=== PATIENT | female | born 1965 | race Caucasian/White ===

== ENCOUNTER → 2017-02-04 | Outpatient (CLI) | payer BC ==
[2017-02-04 10:27] LABS: CHLORIDE,CL 109 mmol/L (98-110); SODIUM,NA 142 mmol/L (136-146)
== END | disposition home or self-care (01) ==
LOC: MW.LAB 09:31
PROVIDERS: ATTEND Nurse Practitioner Family
DX: R21 Rash and other nonspecific skin eruption (principal)
CPT/HCPCS: 36415; 80053; 84439; 84443; 85025; 86140

== ENCOUNTER → 2017-02-07 | Outpatient (CLI) | payer BC ==
--- NOTE | 2017-02-08 10:17 | MY ---
EXAMINATION: Right digital diagnostic mammogram and targeted ultrasound. HISTORY: Pain, comparison dated 11/22/2016, 11/20/2016, 02/28/2015. FINDINGS: A right CC, MLO, and ML view obtained. No abnormal masses or calcifications noted within the region of concern. No skin thickening. No nipp le inversion. Targeted grayscale images obtained in the region of concern demonstrates no abnormal mass or fluid collection. No skin thickening. IMPRESSION: BI-RADS category I - negative mammogram. Continued screening according to ACR-ACS guidelines walter trimble. THE FALSE-NEGATIVE RATE OF MAMMOGRAM IS APPROXIMATELY 10%. MANAGEMENT OF A PALPABLE ABNORMALITY MUST BE BASED UPON CLINICAL GROUNDS. SENSITIVITY FOR DETECTION OF ABNORMALITIES IN DENSE BREASTS IS LOW. NOTE: A letter will be sent to the patient regarding findings.
== END | disposition home or self-care (01) ==
LOC: MW.MAM 10:39
PROVIDERS: ATTEND Nurse Practitioner Women's Health
DX: N64.9 Disorder of breast, unspecified (principal); N64.59 Other signs and symptoms in breast; N64.4 Mastodynia
CPT/HCPCS: 76642; G0206

== ENCOUNTER 2017-09-30 08:50 | Emergency (ER) | payer OTHER ==
[2017-09-30] MEDS ORDERED: Bupivacaine 0.5% 10 ML SDV INJECT ONE (09:11)
[2017-09-30 09:15] VITALS: BP 122/81
--- NOTE | 2017-09-30 10:24 | CR ---
EXAMINATION: Left hand, fourth digit HISTORY: Laceration COMPARISON: None TECHNIQUE: 3 views FINDINGS/IMPRESSION: There is no acute osseous abnormality, dislocation, or fracture. Mild soft tissu e swelling is noted overlying the distal aspect of the fourth digit. Remaining osseous structures and joint spaces appear intact.
[2017-09-30] MEDS ORDERED: Diphtheria,Pertussis(Acell),Tetanus Vaccine 0.5 ML Syringe IM ONE (10:37)
--- NOTE | 2017-09-30 10:39 | EDM.PDOC ---
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 Review of systems: As per history of present illness and below otherwise all systems reviewed and negative. Past medical history: As per history of present illness and as reviewed below otherwise noncontributory. Surgical history: As per history of present illness and as reviewed below otherwise noncontributory. Social history: No reported history of drug or alcohol abuse. Family history: As per history of present illness and as reviewed below otherwise noncontributory. Physical exam: General: Well developed, well nourished in NAD HEENT: Atraumatic, normocephalic, pupils reactive, negative for conjunctival pallor or scleral icterus, mucous membranes moist, throat clear, neck supple, nontender, trachea midline. Lungs: Clear to auscultation, breath sounds equal bilaterally, chest nontender. Heart: S1S2, regular, negative for clicks, rubs, or JVD. Abdomen: Soft, nondistended, nontender. Negative for masses or hepatosplenomegaly. Negative for costovertebral tenderness. Pelvis: Stable nontender. Genitourinary: Deferred. Rectal: Deferred. Extremities: Left ring finger with laceration through the distal corner lateral tip of the nail plate to the pad of the finger., negative for cords or calf pain. Neurovascular unremarkable. Neuro: Awake, alert, oriented. Cranial nerves II through XII unremarkable. Cerebellum unremarkable. Motor and sensory unremarkable throughout. Exam nonfocal. Diagnostics: []X-ray negative for fracture Therapeutics: []Wound Sutured and cleaned tetanus updated Impression: []Laceration left ring finger Plan: []Sutures out 7-10 days, ice, elevate, Motrin and tramadol for pain follow-up with Dr. Jordan Definitive disposition and diagnosis as appropriate pending reevaluation and review of above. Left Hand Pain Score (Numeric/FACES): 6 - Related Data Allergies Allergy/AdvReac Type Severity Reaction Status Date / Time adhesive Allergy Rash Verified 03/15/14 10:08 codeine Allergy Chest Verified 03/15/14 10:08 Presssure meperidine HCl [From Demerol] Allergy Syncope Verified 03/15/14 10:08 Penicillins Allergy Swelling Verified 03/15/14 10:08 Home Meds: Home Meds Liraglutide [Victoza 2-Héctor] 1.8 mg SUBCUT DAILY 09/21/14 [History] Lisinopril [Lisinopril] 1 tab PO BID 09/21/14 [History] Pravastatin [Pravachol] 40 mg PO DAILY 09/21/14 [History] Pregabalin [Lyrica] 75 mg PO DAILY 09/21/14 [History] metFORMIN [Glucophage XR] 500 mg PO TID 09/21/14 [History] traMADol [Ultram] 50 mg PO Q8H PRN #12 tablet 09/30/17 [Rx] Past Medical History Cardiovascular History: Reports: High Cholesterol, Hypertension 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: Neurological History: Reports: TIA Endocrine/Metabolic History: Reports: Diabetes, Type II - Past Surgical History GI Surgical History: Reports: Appendectomy, Cholecystectomy Female Surgical History: Reports: Hysterectomy Social & Family History - Family History Family Medical History: Noncontributory - Tobacco Use Smoking Status *Q: Current Every Day Smoker Years of Tobacco use: 3 Packs/Tins Daily: 0.5 Second Hand Smoke Exposure: No - Caffeine Use Caffeine Use: Reports: Coffee - Alcohol Use Days Per Week of Alcohol Use: 1 Number of Drinks Per Day: 1 Total Drinks Per Week: 1 - Recreational Drug Use Recreational Drug Use: No ED ROS GENERAL - Review of Systems Review Of Systems: See Below (See history of present illness) ED EXAM, SKIN/RASH Exam: See Below (See history of present illness) Course - Vital Signs Last Recorded V/S: Last Vital Signs Temp 98.0 F 09/30/17 09:13 Pulse 73 09/30/17 09:13 Resp 14 09/30/17 09:13 BP 122/81 09/30/17 09:13 Pulse Ox 99 09/30/17 09:13 - Orders/Labs/Meds Meds: Medications Discontinued Medications Generic Name Dose Route Start Last Admin Trade Name Freq PRN Reason Stop Dose Admin Bupivacaine HCl 10 ml 09/30/17 09:11 09/30/17 09:29 Sensorcaine-Mpf 0.5% INJECT 09/30/17 09:12 10 ml ONETIME ONE Administration Departure - Departure Time of Disposition: 10:36 Disposition: Home, Self-Care 01 Condition: Good Clinical Impression: Laceration of left ring finger Qualifiers: Encounter type: initial encounter Damage to nail status: with damage Foreign body presence: without foreign body Qualified Code(s): S61.315A - Laceration without foreign body of left ring finger with damage to nail, initial encounter - Discharge Information Referrals: Luli Barron NP [Primary Care Provider] - Additional Instructions: The following information is given to patients seen in the emergency department who are being discharged to home. This information is to outline your options for follow-up care. We provide all patients seen in our emergency department with a follow-up referral. The need for follow-up, as well as the timing and circumstances, are variable depending upon the specifics of your emergency department visit. If you don't have a primary care physician on staff, we will provide you with a referral. We always advise you to contact your personal physician following an emergency department visit to inform them of the circumstance of the visit and for follow-up with them and/or the need for any referrals to a consulting specialist. The emergency department will also refer you to a specialist when appropriate. This referral assures that you have the opportunity for follow-up care with a specialist. All of these measure are taken in an effort to provide you with optimal care, which includes your follow-up. Under all circumstances we always encourage you to contact your private physician who remains a resource for coordinating your care. When calling for follow-up care, please make the office aware that this follow-up is from your recent emergency room visit. If for any reason you are refused follow-up, please contact the [facility] Emergency Department at and asked to speak to the emergency department charge nurse. Tramadol for pain, ice and elevate finger, follow-up with Dr. Jordan, sutures out in 7-10 days [facility] - Pl[facility] Professional Building [address] [place] [address], [address] [place] [address]
== END 2017-09-30 11:10 | disposition home or self-care (01) ==
LOC: MW.ED 08:50
DX: S61.315A Laceration without foreign body of left ring finger with damage to nail, initial encounter (principal); I10 Essential (primary) hypertension; E11.9 Type 2 diabetes mellitus without complications; F17.210 Nicotine dependence, cigarettes, uncomplicated; E78.00 Pure hypercholesterolemia, unspecified; Z88.5 Allergy status to narcotic agent; Z88.0 Allergy status to penicillin; Z23 Encounter for immunization; Z88.8 Allergy status to other drugs, medicaments and biological substances; Z79.84 Long term (current) use of oral hypoglycemic drugs; Z79.899 Other long term (current) drug therapy; W29.0XXA Contact with powered kitchen appliance, initial encounter
CPT/HCPCS: 12001; 73140-26-F3; 73140-F3; 90471; 90715; 99283; 99283-25

== ENCOUNTER 2018-01-06 06:11 | Emergency (ER) | payer BC, OTHER ==
[2018-01-06] MEDS ORDERED: Sodium Chloride 0.9% 10 ML Syringe FLUSH PRN (06:29)
[2018-01-06] MEDS ORDERED: Sodium Chloride 0.9% 2.5 ML Syringe FLUSH PRN (06:29)
--- NOTE | 2018-01-06 06:37 | EDM.PDOC ---
ED HPI GENERAL MEDICAL PROBLEM - General Chief Complaint: Neurological Problem Stated Complaint: HIGH BLOOD SUGAR Time Seen by Provider: 01/06/18 06:22 - History of Present Illness INITIAL COMMENTS - FREE TEXT/NARRATIVE: HISTORY AND PHYSICAL: History of present illness: The patient is a 52-year-old female with a history of diabetes using both oral meds and insulin, hypertension and hypercholesterolemia as well as neuropathy and recently started care with Dr. Fausto Shah at [facility] and in fact saw him on Saturday, 3 days ago, and presents from work at [employer] with decreased mental status and generalized weakness. Initially they thought it was her blood sugar because she normally runs 120-180 and she was in the low 200s but here in the ED she says that she just felt really weak but did not fall when she got to work. The patient got up at 4 AM drove herself to work and arrived at work at about 4:30 AM and when she arrived her coworkers thought she was not acting like herself. She seemed drowsy and she seemed very weak. They did not notice any focal weakness. The patient said that she was having no headache until driving here in the car at 6 AM. She describes the head as in her occipital area and not right or left. She has no neck pain no chest pain or shortness of breath no recent trauma to her head or neck and no back pain no abdominal pain nausea or vomiting. She has a history of a cholecystectomy appendectomy and total hysterectomy. She says that she used to get migraine headaches but after her hysterectomy she does not get them very often. She says that this is not a typical headache for her. She did not notice that one side was weaker than the other but just felt generalized weakness. We will time this as her last time as being normal at 4:30 AM. Patient was brought to the ER by her coworkers. Review of systems: As per history of present illness and below otherwise all systems reviewed and negative. Past medical history: As per history of present illness and as reviewed below otherwise noncontributory. Surgical history: As per history of present illness and as reviewed below otherwise noncontributory. Social history: No reported history of drug or alcohol abuse. Family history: As per history of present illness and as reviewed below otherwise noncontributory. Physical exam: Gen.: Well-developed well-nourished female who is nontoxic and is moving all extremities but is very slow to do any commands or movements. Vital signs of been reviewed by me HEENT: Atraumatic, there is some mild tenderness at palpation of her occipital scalp throughout but there is no defects deformities or swelling normocephalic, pupils reactive, negative for conjunctival pallor or scleral icterus, mucous membranes moist, throat clear, neck supple, nontender, trachea midline. Neck is supple without any nuchal rigidity or any midline tenderness step-offs or defects. There is no cervical adenopathy. Lungs: Clear to auscultation, breath sounds equal bilaterally, chest nontender. Heart: S1S2, regular, negative for clicks, rubs, or JVD. Abdomen: Soft, nondistended, nontender. Negative for masses or hepatosplenomegaly. Negative for costovertebral tenderness. Pelvis: Stable nontender. Genitourinary: Deferred. Rectal: Deferred. Extremities: Atraumatic, negative for cords or calf pain. Neurovascular unremarkable. Patient has no bony defects or tenderness appreciated and no pedal edema Neuro: Awake, alert, oriented. Cranial nerves II through XII grossly unremarkable that any gross facial droop but the patient is exhibiting a poor effort with my exam.. The gait was not assessed as the patient had difficulty transferring from the car to a wheelchair and wheelchair to bed. Sensory is grossly unremarkable throughout. 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 There is some poor effort involved with this weakness. On dorsiflexion of her feet the patient exhibited a poor effort but when the IV was started she was able to dorsiflex very strongly laterally. The patient has normal tone and her speech is slowed but intact. She did have drift of her left upper extremity, gross exam but we will tested formally with the stroke scale. She has overall poor effort on this exam but is answering questions appropriately Skin: Normal turgor no evidence of any rashes or lesions grossly seen and no diaphoresis Diagnostics: NIHSS, EKG CBC CMP INR troponin TSH UA UDS chest x-ray CT scan of the head Therapeutics: IV O2 monitor 0640: Please note that the patient's boyfriend is here that she was perfectly normal his morning but she does have chronic pain from her neuropathy. He says that he was aware that she had small stroke/mini stroke 10-15 years ago but she is never had exhibited any deficits per his observation. She did not offer this information to me but when I asked her about it she said yes it was a mini stroke and she did not do physical therapy or have any deficits as a result of this. Initial stroke scale by nursing was NIHSS=2. After return from CT the patient is able to feel me running a pen on the bottom of her foot she says she cannot feel sensory proximally. She says she is unable to bend her knee or dorsi or plantar flex her foot on the left. We will repeat a stroke scale 0652: NIHSS is now 10. CT scan was called to me by the radiologist as no acute changes. I will discuss this case with neurology at [facility] and plan to administer TPA as we are still in the window as long as the labs will permitted and she has no exclusion criteria. 0652: Case was discussed with the neurologist Dr Esparza, at [facility] in [place] and she agrees that as the stroke scale is worsening she would give TPA. The patient does not have any contraindications from our interview so we will prepare the alteplase. Flight team is notified and is in route 0658: Case was also discussed with Dr. Johnson in the ER at [facility] who accepts the patient for transfer. He is aware of her care plan. I did discuss with the patient and boyfriend at bedside TPA what it does and the risks benefits involved and she is signing the consent form and we will give the medication. She still complains of an occipital headache which when the flight team arrives we can medicate. We discussed that this might be an atypical migraine but in light of her progressing stroke scale the neurologist Dr. Esparza and I both feel TPA would be indicated. Initial blood pressure has now normalized. Please note that at the time of this dictation the UA UDS and chest x-ray results are not available and I will continue to monitor and follow these until the patient's departure. Critical care time excluding procedures:35min Impression: Acute left hemiparesis/CVA Definitive disposition and diagnosis as appropriate pending reevaluation and review of above. Left Occipital Head Pain Score (Numeric/FACES): 7 - Related Data Allergies Allergy/AdvReac Type Severity Reaction Status Date / Time adhesive Allergy Rash Verified 01/06/18 06:27 codeine Allergy Chest Verified 01/06/18 06:27 Presssure meperidine HCl [From Demerol] Allergy Syncope Verified 01/06/18 06:27 Penicillins Allergy Swelling Verified 01/06/18 06:27 Home Meds: Home Meds Liraglutide [Victoza 2-Héctor] 1.8 mg SUBCUT DAILY 09/21/14 [History] Lisinopril [Lisinopril] 1 tab PO BID 09/21/14 [History] Pregabalin [Lyrica] 75 mg PO DAILY 09/21/14 [History] metFORMIN [Glucophage XR] 500 mg PO TID 09/21/14 [History] Simvastatin [Zocor] 80 mg PO DAILY 01/06/18 [History] Past Medical History Cardiovascular History: Reports: High Cholesterol, Hypertension 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: Neurological History: Reports: TIA Endocrine/Metabolic History: Reports: Diabetes, Type II - Past Surgical History GI Surgical History: Reports: Appendectomy, Cholecystectomy Female Surgical History: Reports: Hysterectomy Social & Family History - Family History Family Medical History: Noncontributory - Tobacco Use Smoking Status *Q: Current Every Day Smoker Years of Tobacco use: 3 Packs/Tins Daily: 0.5 Second Hand Smoke Exposure: No - Caffeine Use Caffeine Use: Reports: Coffee - Alcohol Use Days Per Week of Alcohol Use: 1 Number of Drinks Per Day: 1 Total Drinks Per Week: 1 - Recreational Drug Use Recreational Drug Use: No ED ROS GENERAL - Review of Systems Review Of Systems: ROS reveals no pertinent complaints other than HPI. ED EXAM, GENERAL - Physical Exam Exam: See Below (See dictation) Course - Vital Signs Last Recorded V/S: Last Vital Signs Temp 36.3 C 01/06/18 06:20 Pulse 79 01/06/18 06:20 Resp 12 01/06/18 06:20 BP 150/103 H 01/06/18 06:20 Pulse Ox 97 01/06/18 06:20 - Orders/Labs/Meds Orders: Active Orders 24 hr Category Date Time Status Blood Glucose Check, Bedside [RC] ONETIME Care 01/06/18 06:23 Active Cardiac Monitoring [RC] . DIRECTED Care 01/06/18 06:29 Active Communication Order [RC] STAT Care 01/06/18 06:29 Active EKG Documentation Completion [RC] STAT Care 01/06/18 06:29 Active Oxygen Therapy, ED [RC] ASDIRECTED Care 01/06/18 06:29 Active Pulse Oximetry [RC] ASDIRECTED Care 01/06/18 06:29 Active Chest 1V Frontal [CR] Stat Exams 01/06/18 06:29 Taken Head wo Cont [CT] Stat Exams 01/06/18 06:29 Taken DRUG SCREEN, URINE [URCHEM] Stat Lab 01/06/18 06:29 Ordered UA W/MICROSCOPIC [URIN] Stat Lab 01/06/18 06:29 Ordered Alteplase [Activase] Med 01/06/18 07:00 Active 6.5 mg IVPUSH .BOLUS Alteplase [Activase] 58.9 mg Med 01/06/18 07:00 Active Premix Bag 1 bag IV .INFUSION Sodium Chloride 0.9% [Saline Flush] Med 01/06/18 06:29 Active 10 ml FLUSH ASDIRECTED PRN Sodium Chloride 0.9% [Saline Flush] Med 01/06/18 06:29 Active 2.5 ml FLUSH ASDIRECTED PRN Saline Lock Insert [OM.PC] Stat Oth 01/06/18 06:29 Ordered Medication Orders Alteplase, Recombinant (Activase) 6.5 mg IVPUSH .BOLUS ZEV Alteplase, Recombinant 58.9 mg (/ Premix) 0 mls @ 0 mls/hr IV .INFUSION ZEV Sodium Chloride (Saline Flush) 10 ml FLUSH ASDIRECTED PRN PRN Reason: Keep Vein Open Sodium Chloride (Saline Flush) 2.5 ml FLUSH ASDIRECTED PRN PRN Reason: Keep Vein Open Labs: Laboratory Tests 01/06/18 01/06/18 01/06/18 Range/Units 06:32 06:32 06:32 WBC 10.70 (4.0-11.0) K/uL RBC 5.01 (4.30-5.90) M/uL Hgb 14.9 (12.0-16.0) g/dL Hct 44.4 (36.0-46.0) % MCV 88.6 (80.0-98.0) fL MCH 29.7 (27.0-32.0) pg MCHC 33.6 (31.0-37.0) g/dL RDW Std Deviation 42.9 (28.0-62.0) fl RDW Coeff of Ember 13 (11.0-15.0) % Plt Count 218 (150-400) K/uL MPV 11.40 (7.40-12.00) fL Neut % (Auto) 73.4 (48.0-80.0) % Lymph % (Auto) 19.1 (16.0-40.0) % Buchanan % (Auto) 6.4 (0.0-15.0) % Eos % (Auto) 0.8 (0.0-7.0) % Baso % (Auto) 0.3 (0.0-1.5) % Neut # (Auto) 7.9 H (1.4-5.7) K/uL Lymph # (Auto) 2.0 (0.6-2.4) K/uL Buchanan # (Auto) 0.7 (0.0-0.8) K/uL Eos # (Auto) 0.1 (0.0-0.7) K/uL Baso # (Auto) 0.0 (0.0-0.1) K/uL Nucleated RBC % 0.0 /100WBC Nucleated RBCs # 0 K/uL INR 0.98 Sodium 142 (136-145) mmol/L Potassium 4.0 (3.5-5.1) mmol/L Chloride 106 (98-107) mmol/L Carbon Dioxide 26.9 (21.0-32.0) mmol/L BUN 16 (7.0-18.0) mg/dL Creatinine 0.8 (0.6-1.0) mg/dL Est Cr Clr Drug Dosing 68.82 mL/min Estimated GFR (MDRD) > 60.0 ml/min Glucose 259 H (74-106) mg/dL Calcium 9.2 (8.5-10.1) mg/dL Total Bilirubin 0.2 (0.2-1.0) mg/dL AST 13 L (15-37) IU/L ALT 15 (14-63) IU/L Alkaline Phosphatase 83 (46-116) U/L Troponin I < 0.050 (0.000-0.056) ng/mL Total Protein 7.2 (6.4-8.2) g/dL Albumin 3.7 (3.4-5.0) g/dL Globulin 3.5 (2.0-3.5) g/dL Albumin/Globulin Ratio 1.1 L (1.3-2.8) TSH 3rd Generation 2.80 (0.36-3.74) uIU/mL Meds: Medications Generic Name Dose Route Start Last Admin Trade Name Freq PRN Reason Stop Dose Admin Alteplase, Recombinant 6.5 mg 01/06/18 07:00 Activase IVPUSH .BOLUS ZEV Alteplase, Recombinant 58.9 mg 0 mls @ 0 mls/hr 01/06/18 07:00 / Premix IV .INFUSION ZEV Sodium Chloride 10 ml 01/06/18 06:29 Saline Flush FLUSH ASDIRECTED PRN Keep Vein Open Sodium Chloride 2.5 ml 01/06/18 06:29 Saline Flush FLUSH ASDIRECTED PRN Keep Vein Open Departure - Departure Time of Disposition: :18 Disposition: DC/Tfer to Acute Hospital 02 Condition: Good Clinical Impression: Acute left hemiparesis CVA (cerebral vascular accident) Qualifiers: CVA mechanism: unspecified Qualified Code(s): I63.9 - Cerebral infarction, unspecified - Discharge Information Referrals: Fausto Johnson MD [Primary Care Provider] - Forms: ED Department Discharge - My Orders Last 24 Hours: My Active Orders 01/06/18 06:23 Blood Glucose Check, Bedside [RC] ONETIME 01/06/18 06:29 Cardiac Monitoring [RC] . DIRECTED Communication Order [RC] STAT EKG Documentation Completion [RC] STAT Oxygen Therapy, ED [RC] ASDIRECTED Pulse Oximetry [RC] ASDIRECTED Chest 1V Frontal [CR] Stat Head wo Cont [CT] Stat DRUG SCREEN, URINE [URCHEM] Stat UA W/MICROSCOPIC [URIN] Stat Sodium Chloride 0.9% [Saline Flush] 10 ml FLUSH ASDIRECTED PRN Sodium Chloride 0.9% [Saline Flush] 2.5 ml FLUSH ASDIRECTED PRN Saline Lock Insert [OM.PC] Stat 01/06/18 07:00 Alteplase [Activase] 6.5 mg IVPUSH .BOLUS Alteplase [Activase] 58.9 mg Premix Bag 1 bag IV .INFUSION - Assessment/Plan Last 24 Hours: My Active Orders 01/06/18 06:23 Blood Glucose Check, Bedside [RC] ONETIME 01/06/18 06:29 Cardiac Monitoring [RC] . DIRECTED Communication Order [RC] STAT EKG Documentation Completion [RC] STAT Oxygen Therapy, ED [RC] ASDIRECTED Pulse Oximetry [RC] ASDIRECTED Chest 1V Frontal [CR] Stat Head wo Cont [CT] Stat DRUG SCREEN, URINE [URCHEM] Stat UA W/MICROSCOPIC [URIN] Stat Sodium Chloride 0.9% [Saline Flush] 10 ml FLUSH ASDIRECTED PRN Sodium Chloride 0.9% [Saline Flush] 2.5 ml FLUSH ASDIRECTED PRN Saline Lock Insert [OM.PC] Stat 01/06/18 07:00 Alteplase [Activase] 6.5 mg IVPUSH .BOLUS Alteplase [Activase] 58.9 mg Premix Bag 1 bag IV .INFUSION
[2018-01-06] MEDS ORDERED: ALTEPLASE IV SCH (07:00)
[2018-01-06 07:09] LABS: CHLORIDE,CL 106 mmol/L (98-107); SODIUM,NA 142 mmol/L (136-145)
[2018-01-06 08:15] VITALS: BP 158/101
--- NOTE | 2018-01-06 17:06 | CT ---
EXAM DATE: 01/06/18 PATIENT'S AGE: 52 Patient: TONE GARZA Facility: [place], [place] Site . Site : 1965 Study: CT Head STROKE PROTOCOL [id number] 6:42:25 AM Ordering Physician: Jacey Mcleod Final Report: INDICATION: Altered mental status. Weakness. COMPARISON: none TECHNIQUE: A CT volumetric acquisition was performed of the brain without IV contrast. FINDINGS: There is no evidence of a subdural or epidural hematoma. There is no evidence of subarachnoid hemorrhage or intraparenchymal bleeding. The CT images reveal a normal appearance of the cerebral ventricles and basal cisterns. There is no evidence of localized tissue infarction or mass effect. There is normal carver white matter differentiation. The mastoid air cells and middle ear cavities are clear. The calvarium appears intact. There is normal aeration of the visualized paranasal sinuses. IMPRESSION: No evidence of intracranial hemorrhage or edema. Note: Findings reviewed with Dr. Mari in the emergency department at the completion of the scan on 01/06/2018 at 6:50 a.m. Please note that all CT scans at this facility use dose modulation, iterative reconstruction, and/or weight-based dosing when appropriate to reduce radiation dose to as low as reasonably achievable. Dictated by Chip Pickett MD @ Jan 06 2018 6:45AM (Electronic Signature) Report Signed by Proxy. [facility] ISLANDCecilia
--- NOTE | 2018-01-06 17:07 | CR ---
EXAM DATE: 01/06/18 PATIENT'S AGE: 52 Patient: TONE GARZA Facility: [place], [place] Site . Site : 1965 Study: XRay Chest [id number]/12/[id number] 7:07:00 AM Ordering Physician: Jacey Mcleod Final Report: INDICATION: Weakness COMPARISON: none TECHNIQUE: AP erect chest performed at 6:40 a.m. FINDINGS: The lungs are clear. The heart, mediastinum and pulmonary vessels are of normal size. There is no evidence of pleural fluid. IMPRESSION: Negative chest. Dictated by Chip Pickett MD @ Jan 06 2018 7:13AM (Electronic Signature) Report Signed by Proxy. [facility]
== END 2018-01-06 07:33 ==
LOC: MW.ED 06:11
DX: I63.9 Cerebral infarction, unspecified (principal); G81.94 Hemiplegia, unspecified affecting left nondominant side; I10 Essential (primary) hypertension; E78.00 Pure hypercholesterolemia, unspecified; E11.9 Type 2 diabetes mellitus without complications; F17.210 Nicotine dependence, cigarettes, uncomplicated; Z79.84 Long term (current) use of oral hypoglycemic drugs; Z79.899 Other long term (current) drug therapy; Z88.0 Allergy status to penicillin; Z88.5 Allergy status to narcotic agent; Z91.048 Other nonmedicinal substance allergy status
CPT/HCPCS: 70450; 71045; 80053; 80305; 81001; 84443; 84484; 85025; 85610; 93005; 99285; J2997

== ENCOUNTER 2022-11-22 03:36 | Observation (INO) | payer BC, OTHER ==
[2022-11-22] MEDS ORDERED: Morphine 4 MG/ML Syringe IVPUSH STA (04:06)
[2022-11-22] MEDS ORDERED: Aspirin 81 MG Tab.Chew PO ONE (04:06)
[2022-11-22 04:40] LABS: CARBON DIOXIDE,CO2 27.5 mmol/L (21.0-32.0); POTASSIUM,K 3.7 mmol/L (3.5-5.1)
[2022-11-22 04:57] LABS: CORONAVIRUS COVID-19 NAA NEGATIVE (NEGATIVE); INFLUENZA A NAA NEGATIVE (NEGATIVE); INFLUENZA B NAA NEGATIVE (NEGATIVE); RESPIRATORY SYNCYTIAL VIR NAA NEGATIVE (NEGATIVE)
[2022-11-22] MEDS ORDERED: Alum Hydro/Mag Hydro/Simeth XS 15 ML, Lidocaine 2% 5 ML PO ONE ×2 (05:23)
[2022-11-22] MEDS ORDERED: Famotidine 20 MG Tab PO ONE (05:23)
[2022-11-22] MEDS ORDERED: Magnesium Sulfate/Water 2 GM in Premix Bag 1 BAG IV ONE (05:58)
[2022-11-22] MEDS ORDERED: Ondansetron 4 MG/2 ML SDV IVPUSH ONE (06:40)
[2022-11-22] MEDS: Lisinopril 5 MG Tab PO SCH ×2 (08:01→08:40)
[2022-11-22 09:36] LABS: HEMOGLOBIN A1C 7.4 %
[2022-11-22] MEDS ORDERED: 50% Dextrose in Water 50 ML Syringe IVPUSH PRN (10:03)
[2022-11-22] MEDS ORDERED: Glucagon,Human Recombinant 1 MG Vial IM PRN (10:03)
[2022-11-22] MEDS ORDERED: Polyethylene Glycol 3350 Powder 17 GM Packet PO PRN (11:05)
[2022-11-22] MEDS ORDERED: Albuterol/Ipratropium 3.0-0.5 MG/3 ML Neb Soln NEB PRN (11:05)
[2022-11-22] MEDS ORDERED: Acetaminophen 325 MG Tab PO PRN (11:05)
[2022-11-22] MEDS ORDERED: Ondansetron 4 MG/2 ML SDV IVPUSH PRN (11:06)
[2022-11-22] MEDS: Insulin Aspart 100 Units/ML 3 ML Pen SUBCUT SCH ×2 (12:19→17:10)
[2022-11-22] MEDS: Aspirin 81 MG Tab.EC PO SCH (12:19)
[2022-11-22] MEDS: Nicotine 7 MG/24 Hr Patch TRDERM SCH (12:25)
[2022-11-22] MEDS: Rosuvastatin 10 MG Tab PO SCH (12:25)
[2022-11-23] MEDS: Insulin Aspart 100 Units/ML 3 ML Pen SUBCUT SCH (07:48)
[2022-11-23] MEDS: Nicotine 7 MG/24 Hr Patch TRDERM SCH (08:01)
[2022-11-23] MEDS: Rosuvastatin 10 MG Tab PO SCH (08:01)
[2022-11-23] MEDS: Aspirin 81 MG Tab.EC PO SCH (08:01)
[2022-11-23 08:07] LABS: CARBON DIOXIDE,CO2 28.3 mmol/L (21.0-32.0); POTASSIUM,K 4.3 mmol/L (3.5-5.1)
[2022-11-23] MEDS ORDERED: Pantoprazole 40 MG in Sodium Chloride 0.9% 10 ML IVPUSH SCH (09:00)
[2022-11-23] MEDS ORDERED: Lisinopril 5 MG Tab PO SCH (09:00)
[2022-11-23 12:00] VITALS: BP 123/71; PULSE 72
== END 2022-11-23 11:45 | disposition home or self-care (01) ==
LOC: MW.ED 03:36 → MW.MS 07:43
PROVIDERS: ADMIT Internal Medicine; ATTEND Internal Medicine
DX: R07.9 Chest pain, unspecified (principal); F41.9 Anxiety disorder, unspecified; E11.9 Type 2 diabetes mellitus without complications; I10 Essential (primary) hypertension; F17.210 Nicotine dependence, cigarettes, uncomplicated; E78.00 Pure hypercholesterolemia, unspecified; Z86.73 Personal history of transient ischemic attack (TIA), and cerebral infarction without residual deficits; Z79.899 Other long term (current) drug therapy; Z79.82 Long term (current) use of aspirin; Z79.84 Long term (current) use of oral hypoglycemic drugs; Z98.890 Other specified postprocedural states; Z90.49 Acquired absence of other specified parts of digestive tract; Z90.710 Acquired absence of both cervix and uterus; Z20.822 Contact with and (suspected) exposure to COVID-19
CPT/HCPCS: 0241U; 36415; 71045; 80053; 80061; 82947; 83036; 83735; 84439; 84443; 84484; 85025; 85379; 93005; 96365; 96375; 99285; A9270; C9113; G0378; J2270; J2405; J3475; J3490

== ENCOUNTER 2025-07-27 11:28 | Emergency (ER) | payer OTHER ==
[2025-07-27] MEDS ORDERED: Sodium Chloride 0.9% 2.5 ML Syringe FLUSH PRN (12:23)
[2025-07-27] MEDS ORDERED: Sodium Chloride 0.9% 10 ML Syringe FLUSH PRN (12:23)
[2025-07-27 12:47] LABS: BASOPHILS ABSOLUTE AUTO 0.04 K/uL (0.00-0.20); BASOPHILS PERCENT AUTO 0.3 % (0.0-1.0); EOSINOPHILS ABSOLUTE AUTO 0.01 K/uL (0.00-0.45); EOSINOPHILS PERCENT AUTO 0.1 % (0.0-6.0); IMMATURE GRAN ABSOLUTE AUTO 0.04 K/uL (0.00-0.05); IMMATURE GRAN PERCENT AUTO 0.3 % (0.0-0.4); LYMPHOCYTES ABSOLUTE AUTO 1.22 K/uL (1.00-4.80); LYMPHOCYTES PERCENT AUTO 8.8 % (24.0-44.0); MEAN PLATELET VOLUME 10.5 fL (9.4-12.3); MONOCYTES ABSOLUTE AUTO 0.76 K/uL (0.00-0.80); MONOCYTES PERCENT AUTO 5.5 % (0.0-8.0); NEUTROPHILS ABSOLUTE AUTO 11.75 K/uL (1.80-7.70); NEUTROPHILS PERCENT AUTO 85.0 % (41.0-71.0); NRBC ABSOLUTE 0.00 K/uL (0.00-0.02); NRBC PERCENT 0.0 /100WBC (0.0-0.2); PLATELET COUNT,PLT 235 K/uL (150-400); RED BLOOD CELL COUNT 4.89 M/uL (4.10-5.30); WHITE BLOOD CELL COUNT,WBC 13.82 K/uL (3.9-11.3)
[2025-07-27 13:26] LABS: A/G RATIO 1.2 (0.9-1.6); ALANINE AMINOTRANSFERASE,ALT 15.0 IU/L (14-63); ASPARTATE AMNIOTRANSFERASE,AST 14.0 IU/L (15-37); BILIRUBIN TOTAL 0.5 mg/dL (0.2-1.0); BLOOD UREA NITROGEN,BUN 14.0 mg/dL (7.0-18.0); CARBON DIOXIDE,CO2 28.6 mmol/L (21.0-32.0); CHLORIDE,CL 104.0 mmol/L (98-107); CREATININE 0.7 mg/dL (0.6-1.0); EST CRCL DRUG DOSING (CG) 75.65 mL/min; GLUCOSE RANDOM 229.0 mg/dL (74-106); POTASSIUM,K 4.3 mmol/L (3.5-5.1); PROTEIN TOTAL,TP 6.9 g/dL (6.4-8.2); SODIUM,NA 142.0 mmol/L (136-145)
[2025-07-27 13:51] LABS: ESTIMATED GFR 100.0 mL/min (>60)
[2025-07-27 15:22] LABS: APPEARANCE,URINE CLEAR; GLUCOSE,URINE 100 mg/dL (NEGATIVE); OCCULT BLOOD,URINE NEGATIVE (NEGATIVE)
[2025-07-27 15:34] VITALS: BP 139/81; PULSE 75
== END 2025-07-27 15:34 | disposition home or self-care (01) ==
LOC: MW.ED 11:28
DX: R42 Dizziness and giddiness (principal); I10 Essential (primary) hypertension; E78.00 Pure hypercholesterolemia, unspecified; E11.9 Type 2 diabetes mellitus without complications; Z86.73 Personal history of transient ischemic attack (TIA), and cerebral infarction without residual deficits; Z75.3 Unavailability and inaccessibility of health-care facilities; Z91.048 Other nonmedicinal substance allergy status; Z88.5 Allergy status to narcotic agent; Z79.899 Other long term (current) drug therapy; Z79.82 Long term (current) use of aspirin; Z79.84 Long term (current) use of oral hypoglycemic drugs; Z90.49 Acquired absence of other specified parts of digestive tract
CPT/HCPCS: 36415; 70450; 80053; 81003; 83690; 83735; 85025; 87086; 96360; 99284; A9270; J7030; 99283